=== PATIENT | female | born 1945 | race Caucasian/White ===

== ENCOUNTER 2017-12-06 06:34 | Day surgery (SDC) ==
[2017-12-06] MEDS: BETADINE OPTH PREP OP PRN ×4 (06:55→07:18)
[2017-12-06] MEDS: TETRACAINE 0.5% UNIT-DOSE OP PRN ×2 (06:55→07:18)
[2017-12-06 07:02] VITALS: TEMP 98.1
[2017-12-06] MEDS ORDERED: ZOFRAN 4 MG/2 ML IVP ONE (07:03)
[2017-12-06] MEDS ORDERED: DEX-MOXI-KETOR OPTH INJ 1/0.5/0.4 MG/ML IO ONE (07:03)
[2017-12-06] MEDS ORDERED: BRIMONIDINE TARTRATE 0.2% OPTH SOL OP PRN (07:03)
[2017-12-06] MEDS ORDERED: LIDOCAINE 1%/PHENYLEPHRINE 1.5% BSS (SURGERY) INTRAOCULA ONE (07:03)
[2017-12-06] MEDS ORDERED: CYCLOGYL 2% OPTH OP PRN (07:03)
[2017-12-06] MEDS ORDERED: BSS WITH EPINEPHRINE OP ONE (07:03)
[2017-12-06] MEDS ORDERED: ZOFRAN 4 MG/2 ML ONE (07:25)
[2017-12-06] MEDS ORDERED: DIPRIVAN 20 ML VIAL IVP ONE (07:25)
[2017-12-06] MEDS ORDERED: VERSED ONE (07:25)
[2017-12-07 12:45] VITALS: BP 131/67
== END 2017-12-06 08:20 | disposition home or self-care (01) ==
LOC: SURG 06:34
PROVIDERS: ATTEND Ophthalmology
DX: H25.812 Combined forms of age-related cataract, left eye (principal)

== ENCOUNTER 2017-12-20 06:21 | Day surgery (SDC) ==
[2017-12-20] MEDS ORDERED: LIDOCAINE 1% 20 ML MDV ID ONE (06:45)
[2017-12-20] MEDS: TETRACAINE 0.5% UNIT-DOSE OP PRN ×4 (06:47→07:30)
[2017-12-20] MEDS: CYCLOGYL 2% OPTH OP PRN ×3 (06:47→06:57)
[2017-12-20] MEDS: BETADINE OPTH PREP OP PRN ×2 (06:47→07:23)
[2017-12-20 06:48] VITALS: TEMP 97.8
[2017-12-20] MEDS ORDERED: ZOFRAN 4 MG/2 ML IVP ONE (07:00)
[2017-12-20] MEDS ORDERED: BSS WITH EPINEPHRINE OP ONE (07:00)
[2017-12-20] MEDS ORDERED: DEX-MOXI-KETOR OPTH INJ 1/0.5/0.4 MG/ML IO ONE (07:00)
[2017-12-20] MEDS ORDERED: LIDOCAINE 1%/PHENYLEPHRINE 1.5% BSS (SURGERY) INTRAOCULA ONE (07:00)
[2017-12-20] MEDS ORDERED: BRIMONIDINE TARTRATE 0.2% OPTH SOL OP PRN (07:00)
[2017-12-20] MEDS ORDERED: VERSED ONE (07:22)
[2017-12-20] MEDS ORDERED: ZOFRAN 4 MG/2 ML ONE (07:22)
[2017-12-22 08:16] VITALS: BP 132/78
== END 2017-12-20 08:10 | disposition home or self-care (01) ==
LOC: SURG 06:21
PROVIDERS: ATTEND Ophthalmology
DX: H25.812 Combined forms of age-related cataract, left eye (principal)